=== PATIENT | male | born 1975 | race Caucasian/White ===

== ENCOUNTER 2016-10-11 15:11 | Emergency (ER) | payer MEDICARE ==
[2016-10-11 15:59] LABS: BASO % 0.4 % (0.2-1.2); EOS # 0.2 10_X3_uL (0.0-0.5); EOS % 2.7 % (0.8-7.0); GRAN # 4.5 10_X3_uL (1.8-5.4); GRAN % 56.3 % (34.0-67.9); HEMATOCRIT 37.6 % (40-51); HEMOGLOBIN 12.8 g/dL (13.7-17.5); LYMPH # 2.7 10_X3_uL (1.3-3.6); LYMPH % 33.1 % (21.8-53.1); MEAN CORPUSCULAR HEMOGLOBIN 28.9 pg (27.0-33.0); MEAN CORPUSCULAR VOLUME 84.9 fL (79-92); MEAN PLATELET VOLUME 9.7 fl (7.5-11.5); MONO # 0.6 10_X3_uL (0.3-0.8); MONO % 7.5 % (5.3-12.2); PLATELET COUNT 224 x10_3/uL (163-337); RED BLOOD COUNT 4.43 x10_6/uL (4.6-6.1); RED CELL DISTRIBUTION WIDTH 13.9 % (11.6-14.4)
[2016-10-11 16:14] LABS: ALBUMIN 4.2 gm/dL (3.4-5.0); ALKALINE PHOSPHATASE 86 U/L (50-136); ALT/SGPT 81 U/L (7.53-40.17); AMYLASE 53 U/L (15.62-74.58); AST/SGOT 47 U/L (6.66-35.34); BILIRUBIN,TOTAL 0.23 mg/dL (0.0-1.0); BLOOD UREA NITROGEN 9 mg/dL (7-18); CALCIUM 9.3 mg/dL (8.7-10.7); CARBON DIOXIDE 27 mmol/L (21-32); CREATININE 0.7 mg/dL (0.6-1.3); GLUCOSE,RANDOM 93 mg/dL (70-99); LIPASE 31 U/L (6.75-60.75); POTASSIUM 4.1 mmol/L (3.5-5.1); SODIUM 141 mmol/L (136-145); TOTAL PROTEIN 7.1 gm/dL (6.4-8.2)
== END 2016-10-11 19:10 | disposition home or self-care (01) ==
LOC: ER 15:11
PROVIDERS: Internal Medicine
DX: K50.10 Crohn's disease of large intestine without complications (principal); K62.5 Hemorrhage of anus and rectum; Z90.49 Acquired absence of other specified parts of digestive tract; F17.210 Nicotine dependence, cigarettes, uncomplicated; R10.13 Epigastric pain
CPT/HCPCS: 36415; 80053; 82150; 83690; 85025; 96374; 96375; 99070; 99283-25; 99284; G0328-QW